=== PATIENT | female | born 1995 | race Caucasian/White ===

== ENCOUNTER 2019-06-10 04:31 | Emergency (ER) | payer MEDICAID ==
[~2019-06-10] VITALS: Ht 162.6 cm; Wt 87.5 kg
[2019-06-10 04:34] VITALS: Ht 162.6 cm; Wt 87.5 kg
[2019-06-10 06:34] VITALS: BP 120/71
== END 2019-06-10 06:34 | disposition home or self-care (01) ==
LOC: ED 04:31
DX: N10 Acute pyelonephritis (principal); R51 Headache
CPT/HCPCS: J0696; J1885; J7060

== ENCOUNTER 2020-01-18 16:14 | Emergency (ER) | payer MEDICAID ==
[~2020-01-18] VITALS: Ht 165.1 cm; Wt 90.7 kg
[2020-01-18 16:28] VITALS: Ht 165.1 cm; Wt 90.7 kg
[2020-01-18 17:00] LABS: UA SPECIFIC GRAVITY <=1.005 (1.005-1.035); microscopic required? YES; urine erythrocyte 3+ (NEGATIVE)
[2020-01-18 17:02] LABS: BASOPHIL % 0.4 % (0-2); PLATELET COUNT 205 x10^3mcL (130-400); RED CELL DISTRIBUTION WIDTH 12.9 % (11.5-14.5)
[2020-01-18 18:46] VITALS: BP 135/69
== END 2020-01-18 18:46 | disposition home or self-care (01) ==
LOC: ED 16:14
PROVIDERS: Emergency Medicine
DX: O20.0 Threatened abortion (principal); Z3A.11 11 weeks gestation of pregnancy; Z98.890 Other specified postprocedural states
CPT/HCPCS: 36415